=== PATIENT | female | born 1945 | race Caucasian/White ===

== ENCOUNTER 2024-08-12 16:37 | Emergency (ER) | payer MEDICARE ==
[~2024-08-12] VITALS: Ht 154.9 cm; Wt 71.7 kg
[2024-08-12 17:09] VITALS: PULSE 68; RESP 18; TEMP 97.3; O2SAT 100
[2024-08-12] MEDS: ACETAMINOPHEN 325 MG TAB PO ONE (18:31)
== END 2024-08-12 18:40 | disposition home or self-care (01) ==
LOC: ER 17:04
DX: M25.561 Pain in right knee (principal); S83.8X1A Sprain of other specified parts of right knee, initial encounter; W01.0XXA Fall on same level from slipping, tripping and stumbling without subsequent striking against object, initial encounter; Y93.01 Activity, walking, marching and hiking; Y92.89 Other specified places as the place of occurrence of the external cause
CPT/HCPCS: 99283